=== PATIENT | female | born 1985 | race Caucasian/White ===

== ENCOUNTER 2020-05-29 10:23 | Outpatient (CLI) | payer OTHER ==
--- NOTE | 2020-05-29 11:36 | ULT ---
COMPLETE ABDOMEN ULTRASOUND INDICATION: Epigastric abdominal pain with abnormal bowel function, loss of appetite and unintended w eight loss TECHNIQUE: Grayscale, color Doppler and spectral Doppler were obtained of the abdomen. COMPARISON: CT the abdomen and pelvis from [facility] dated October 07, 2016 FINDINGS: Liver: There is very mild intrahepatic biliary ductal dilatation is nonspecific and new from the prio r exam. Main portal vein: Patent with appropriate hepatopedal flow Pancreas: Visualized aspects of the pancreatic head and body appear within normal limits. Gallbladder: Normal. No sonographic Sanches's sign reported. Common bile duct:3.2 mm. Right kidney: The right kidney measured 10.5 x 3.4 x 4.8 cm. No focal renal lesion or hydronephrosis is evident. Left kidney: The left kidney measured 10.2 x 4.9 x 6.0 cm. No focal renal lesion or hydronephrosis is demonstrated. Aorta and IVC: Appeared within normal limits. Spleen: 8.1cm in length. No focal splenic lesion is evident. Free fluid: None. IMPRESSION: 1. Nonspecific mild intrahepatic biliary ductal dilatation. No extrahepatic biliary ductal dilatation is noted. Recommend further evaluation with an MRCP of the abdomen. This can be performed with and without IV contrast. 2. No additional abnormality demonstrated
== END 2020-05-29 10:24 | disposition home or self-care (01) ==
LOC: SCSULT 10:23
PROVIDERS: ATTEND Physician Assistant Medical
DX: R10.13 Epigastric pain (principal); R19.4 Change in bowel habit; R63.4 Abnormal weight loss; R11.2 Nausea with vomiting, unspecified; K83.8 Other specified diseases of biliary tract
CPT/HCPCS: 93975

== ENCOUNTER 2020-06-14 07:40 | Outpatient (CLI) | payer OTHER ==
--- NOTE | 2020-06-14 09:10 | MRI ---
MR of the abdomen with and without IV contrast INDICATION: Loss of appetite and unintentional weight loss TECHNIQUE: Multiplanar multisequence MR images were obtained of the abdomen with and without contrast utilizing MRCP protocol. Contrast: 9 cc of MultiHance was utilized. COMPARISON: Abdominal ultrasound dated May 29, [address] the abdomen and pelvis from [facility] dated October 07, 2016. FINDINGS: Liver: There is a 5 mm cyst within segment IVb of the left hepatic lobe. There is a 5 mm cyst within segment 5 of the right hepatic lobe. No suspicious hepatic lesion is identified. Gallbladder and biliary system: No gallstones are present. No intrahepatic or extrahepatic biliary du ctal dilatation is noted. Previously seen mild intrahepatic biliary ductal dilatation on the comparison ultrasound has resolved.The common bile duct measures: 0.3 cm. Pancreas: Normal appearing. Adrenal glands: Normal appearing. Kidneys: Normal appearing.. Spleen: Normal in size measuring 10.2 cm. No focal splenic lesion identified. Retroperitoneum and peritoneal cavity: No free fluid or lymphadenopathy is evident. Osseous structures: Bone marrow signal intensity is within normal limits. IMPRESSION: 1. Resolution of the previously seen intrahepatic biliary ductal dilatation which may have reflected transient biliary stasis. 2. Small hepatic cysts.
[2020-06-14] MEDS ORDERED: Magnevist 469MG/ML 20 ML VIAL ONE (13:09)
== END 2020-06-14 07:41 | disposition home or self-care (01) ==
LOC: BICMRI 07:40
PROVIDERS: ATTEND Physician Assistant Medical
DX: R63.4 Abnormal weight loss (principal); R63.0 Anorexia; K76.89 Other specified diseases of liver; K82.8 Other specified diseases of gallbladder
CPT/HCPCS: 74183; A9579

== ENCOUNTER 2020-06-21 07:59 | Day surgery (SDC) | payer OTHER ==
[2020-06-21] MEDS ORDERED: Cosyntropin 250 MCG VIAL SLOW IVP SCH (08:15)
--- NOTE | 2020-06-21 08:38 | RAD ---
CHEST 2 VIEWS: Date: 06/21/2020 COMPARISON: None. HISTORY: Loss of appetite, unintentional weight loss. FINDINGS: Lungs appear clear. Heart and mediastinal contours are unremarkable. IMPRESSION: No acute findings. POS: DEANNA
[2020-06-21 08:53] VITALS: BP 120/74
== END 2020-06-21 10:15 | disposition home or self-care (01) ==
LOC: RAD 07:59 → ONC/OP 10:15
PROVIDERS: ATTEND Internal Medicine Gastroenterology
DX: R63.0 Anorexia (principal); R63.4 Abnormal weight loss
CPT/HCPCS: 36415; 71046; 80400; 82024; 96374; 99211; G0463; J0834